=== PATIENT | male | born 1965 | race Caucasian/White ===

== ENCOUNTER 2017-07-25 09:10 | Day surgery (SDC) | payer OTHER ==
[~2017-07-25] VITALS: Ht 190.5 cm; Wt 131.6 kg
[~2017-07-25 09:10] MED LIST: ASPIRIN325 MG PO
[2017-07-25] MEDS ORDERED: METOPROLOL SUC100 MG PO (09:45)
[2017-07-25] MEDS ORDERED: BICALUTAMIDE50 MG PO (09:45)
--- NOTE | 2017-07-25 10:44 | NUR ---
07/25/17 1044 Lupe Keith 1025: PT ARRIVED TO PACU, DROWSY BUT RESPONDING TO RN. O2 AT 3L. PT RESTING ON L SIDE. ABD SOFT. NO NOTE OF FLATUS.
--- NOTE | 2017-07-25 11:57 | NUR ---
PT ZAHIDA, ORIENTED AND SUPPORTED BY HIS ROBERTO. BOTH PLEASANT PEOPLE, PT HAS HAD PREVIOUS SCOPES-DOESN'T LIKE PREP ANYMORE THIS TIME. BOTH SEEMED PREPARED, PT REQUESTED PRAYER. WILL FOLLOW NEEDED
--- NOTE | 2017-07-31 06:10 | OR ---
[facility] [address] [place], [place] [address] Signed DATE OF OPERATION: 07/25/2017 SURGEON: Amando Santiago MD PREOPERATIVE DIAGNOSES: 1. Change in bowel habits with alternating constipation, diarrhea, and right-sided abdominal pain. 2. His mother with history of colon cancer at age 61. POSTOPERATIVE DIAGNOSIS: Minimal internal hemorrhoids. PROCEDURE: Colonoscopy without biopsy. ESTIMATED BLOOD LOSS: None. INDICATIONS: Joey is a 52-year-old obese gentleman, who is scheduled for radical prostatectomy on 08/02/2017. He started some medication and developed some right-sided abdominal pain with a change in bowel habits including constipation and diarrhea. Apparently, that was not unexpected with his medication. He also told me that his mother developed colon cancer at age 61. He said he had his first colonoscopy at age 46 and it was fine. He was asked to have his followup colonoscopy prior to his prostate surgery. I met with Joey in the office and I gave him a booklet on colonoscopy. We looked at that together along with the risks including, but not limited to gas bloating, crampy abdominal pain, bleeding, perforation, requiring surgery, and missed diagnosis. We also discussed the need for IV conscious sedation. He told me he was awake during much of his prior colonoscopy and that was uncomfortable. PROCEDURE NOTE: Joey was taken into our endoscopy suite and placed in the left lateral decubitus position. We gave him 10 mg of Versed and 200 mcg of fentanyl to cover the case. It did take a little while for the medication to work for him. Digital rectal exam was performed and I could just feel the bottom of the prostate. He is a large man, I just could not quite reach. After this, the adult colonoscope was introduced and advanced all around into the cecum under direct visualization of the camera without difficulty. His prep was quite good. The scope was then slowly withdrawn. We saw no evidence of any pathology throughout the entire colon or rectum. Once in the rectum, the scope had Electronically Signed By: AMANDO SANTIAGO MD 07/31/17 0610 PATIENT NAME: JOEY IRAHETA OPERATIVE REPORT DATE OF : 67 REPORT #: [id number] PHYSICIAN: AMANDO SANTIAGO MD PCP: Austin SEAMAN MD REPORT IS CONFIDENTIAL AND NOT TO BE RELEASED WITHOUT AUTHORIZATION [address] [address] Signed been retroflexed and he does have some tiny internal hemorrhoid columns. After this, the gas was suctioned out and colonoscope removed. Joey tolerated the procedure quite well. RECOMMENDATIONS: I will see Joey back for repeat colonoscopy in 5 years. Amando Santiago MD ALB/MODL /[id number] cc: MD Austin Banegas MD Mershed Alsamara, MD Copies: FRANNIE LEWIS MD, W NORMAN MD ALSAMARA, MERSHED MD ~ Electronically Signed By: AMANDO SANTIAGO MD 07/31/17 0610 PATIENT NAME: JOEY IRAHETA OPERATIVE REPORT DATE OF : 67 REPORT #: [id number] PHYSICIAN: AMANDO SANTIAGO MD PCP: Austin SEAMAN MD REPORT IS CONFIDENTIAL AND NOT TO BE RELEASED WITHOUT AUTHORIZATION
== END 2017-07-25 11:00 | disposition home or self-care (01) ==
LOC: DS 09:10 → OPS 09:10 → DS 10:30 → OPS 10:30
PROVIDERS: Colon & Rectal Surgery
PROC: 0DJD8ZZ Inspection of Lower Intestinal Tract, Via Natural or Artificial Opening Endoscopic (ICD-10-PCS; principal; 2017-07-25 10:30)
DX: K64.8 Other hemorrhoids (principal); K21.9 Gastro-esophageal reflux disease without esophagitis; M48.061 Spinal stenosis, lumbar region without neurogenic claudication; Z98.890 Other specified postprocedural states; Z79.899 Other long term (current) drug therapy
CPT/HCPCS: G0500; J2250; J3010; J7120

== ENCOUNTER 2022-09-28 06:50 | Day surgery (SDC) | payer OTHER ==
[2022-09-19 15:12] VITALS: BP 133/87
[~2022-09-28] VITALS: Ht 190.5 cm; Wt 125.0 kg
[~2022-09-28 06:50] MED LIST changes: +BICALUTAMIDE50 MG PO; +HYDROCHLOROTH12.5 MG PO; +METOPROLOL SUC100 MG PO
[2022-09-28 07:03] VITALS: BP 133/89
--- NOTE | 2022-09-28 09:16 | NUR ---
09/28/22 0916 Chelle Kidd 0900 PT ARRIVED TO PACU WITH ORAL AIRWAY IN PLACE, RESP EVEN AND UNLABORED. 6L VIA MASK IN PLACE.
[2022-09-28 09:35] VITALS: BP 125/91
--- NOTE | 2022-09-28 10:30 | OR ---
[facility] [address] [place], [place] [address] Signed DATE OF OPERATION: 09/28/2022 SURGEON: Amando Santiago MD PREOPERATIVE DIAGNOSES: 1. Mother with rectal cancer age 61, requiring abdominoperineal resection. Then, colon cancer at age 82 requiring total abdominal colectomy. Also, history of colonic polyps. 2. Chronic intermittent rectal bleeding. 3. Internal hemorrhoids. POSTOPERATIVE DIAGNOSES: 1. 4 mm polyp at 7 cm in rectum. 2. 5 mm polyp at hepatic flexure. 3. 4 mm polyp at distal hepatic flexure. 4. 4 mm polyp at 30 cm. 5. Minimal to moderate internal hemorrhoids. PROCEDURE: Colonoscopy with hot biopsy. ESTIMATED BLOOD LOSS: None. INDICATIONS: Joey is a 57-year-old gentleman, asked to see me for a followup colonoscopy. His mother developed rectal cancer at age 61 and underwent an abdominoperineal resection at [facility] in [place], [place]. She has had multiple colonic polyps removed. She then developed colon cancer at age 82. She had the rest of her colon out and now has an ileostomy in the right lower quadrant. Joey himself is known to have internal hemorrhoids with chronic intermittent rectal bleeding. Joey had a colonoscopy with Dr. Michel, which was unremarkable back in 2005. He required 15 mg of Versed and 150 mcg of fentanyl at that time. I helped him with a colonoscopy in 2018 and we noted internal hemorrhoids. He required 10 mg of Versed and 200 mcg of fentanyl. Of course, we asked him to follow up in 5 years given his family history. In addition, he has undergone an open radical prostatectomy and had to deal with some where they reconnected the bladder to the urethra. He also reminded me that during his colonoscopies, he woke up multiple times and he said it was quite miserable. In the office, I had given him a pamphlet on colonoscopy. We had reviewed the nature of the test. There is risk including, but not limited to gas bloating, crampy abdominal pain, bleeding, perforation requiring surgery, and missed diagnosis. We also reviewed the Electronically Signed By: AMANDO SANTIAGO MD 09/28/22 1030 PATIENT NAME: JOEY IRAHETA OPERATIVE REPORT DATE OF : 67 REPORT #: [id number] PHYSICIAN: AMANDO SANTIAGO MD PCP: RENAE WATSON MD REPORT IS CONFIDENTIAL AND NOT TO BE RELEASED WITHOUT AUTHORIZATION [facility] [address] [place] [id number] Signed written instructions for a bowel prep line by line. He is a large man and he might benefit from some additional prep in the future. We also reviewed the need for monitored anesthesia care with propofol infusion as we described above. He had expressed understanding and wished to proceed. PROCEDURE NOTE: Joey was taken into our endoscopy suite and placed in the left lateral decubitus position. He was given IV propofol per our nurse generator technician. A digital rectal exam was performed. He has good sphincter tone. Really no external hemorrhoids. His prostate is absent. The adult colonoscope was then introduced and advanced all around into the cecum under direct visualization of the camera. We needed just a little bit of abdominal compression in order to get the scope directly in the cecum itself. He had two or three areas where he had liquid particulate stool matter, which most of it was irrigated and suctioned out. In the end, we could easily see the appendiceal orifice and the ileocecal valve. The scope was then slowly withdrawn. We took pictures throughout for photodocumentation. The above-mentioned polyps were removed with the help of hot biopsy forceps. We did not specifically see any diverticula on this occasion. Once in the rectum, the scope had been retroflexed and he does have minimal to moderate internal hemorrhoid columns. After this, the gas was suctioned out and the colonoscope removed. Joey tolerated the procedure quite well. RECOMMENDATIONS: Joey will follow up in my office in 7 to 14 days to review his results. I suspect he will stay on the five year plan. He may benefit from some additional bowel prep in the future. He really should continue with monitored anesthesia care in the future. Amando Santiago MD ALB/MODL /[id number] cc: MD Amando Monroy MD Electronically Signed By: AMANDO SANTIAGO MD 09/28/22 1030 PATIENT NAME: JOEY IRAHETA OPERATIVE REPORT DATE OF : 67 REPORT #: [id number] PHYSICIAN: AMANDO SANTIAGO MD PCP: RENAE WATSON MD REPORT IS CONFIDENTIAL AND NOT TO BE RELEASED WITHOUT AUTHORIZATION [place] [id number] Signed Copies: AMANDO SANTIAGO MD ~ Electronically Signed By: AMANDO SANTIAGO MD 09/28/22 1030 PATIENT NAME: JOEY IRAHETA OPERATIVE REPORT DATE OF : 67 REPORT #: [id number] PHYSICIAN: AMANDO SANTIAGO MD PCP: RENAE WATSON MD REPORT IS CONFIDENTIAL AND NOT TO BE RELEASED WITHOUT AUTHORIZATION
--- NOTE | 2022-09-28 11:45 | NUR ---
PT ALERT, ORIENTED AND MENTIONED HE HAS HAD SEVRAL PREVIOUS SCOPES. PTS' ROBERTO WILL ARRIVE FOR DC. ALL QUESTIONS ASKED ANSWERED. PT REQUESTED PRAYER, GAVE BLESSING AND WILL FOLLOW
--- NOTE | 2022-10-01 16:10 | PATH ---
[facility] [address] [place], [place] [address] Signed SPECIMEN(S): A RECTAL POLYP AT 7 CM SPECIMEN(S): B HEPATIC FLEXURE COLON POLYP SPECIMEN(S): C DISTAL HEPATIC FLEXURE COLON POLYP SPECIMEN(S): D COLON POLYP AT 30 CM SPECIMEN SOURCE: A. RECTAL POLYP AT 7 CM B. HEPATIC FLEXURE COLON POLYP C. DISTAL HEPATIC FLEXURE COLON POLYP D. COLON POLYP AT 30 CM CLINICAL HISTORY: Pre: Family history of colon polyps and colon CA. FINAL PATHOLOGIC DIAGNOSIS: A. Rectal polyp at 7 cm: - Hyperplastic polyp (one fragment). B. Hepatic flexure colon polyp: - Hyperplastic polyp (one fragment). C. Distal hepatic flexure colon polyp: - Hyperplastic polyp (one fragment). D. Colon polyp at 30 cm: - Tubular adenoma (one fragment). JVR:[facility]:C2NR MICROSCOPIC EXAMINATION: Histologic sections of all submitted blocks are examined by light microscopy. These findings, together with the gross examination, support the pathologic diagnosis. GROSS DESCRIPTION: A. The specimen, labeled and designated "Iraheta, rectum polyp at 7 cm," is received in formalin and consists of one barajas soft tissue fragment, 0.3 cm. Entirely submitted in (A1). B. The specimen, labeled and designated "Iraheta, hepatic flexure polyp," is received in formalin and consists of one barajas soft tissue fragment, 0.1 cm. Entirely submitted in (B1). C. The specimen, labeled and designated "Iraheta, distal hepatic flexure polyp," is received in formalin and consists of one barajas soft tissue fragment, 0.1 cm. Entirely submitted in (C1). D. The specimen, labeled and designated "Iraheta, colon polyp at 30 cm," is PATIENT NAME: JOEY IRAHETA PATHOLOGY DATE OF : 67 REPORT #: [id number] PHYSICIAN: JOANNE PATHOLOGY PCP: RENAE WATSON MD REPORT IS CONFIDENTIAL AND NOT TO BE RELEASED WITHOUT AUTHORIZATION [facility] [address] [place], [place] [address] Signed received in formalin and consists of one barajas soft tissue fragment, 0.1 cm. Entirely submitted in (D1). JS (under the direct supervision of a pathologist) The Gross Description was prepared using a voice recognition system. The report was reviewed for accuracy; however, sound-alike word errors, addition and/or deletions may occur. If there is any question about this report, please contact Client Services. PERFORMING LABORATORY: The technical component was performed by [facility], [address] [place] [id number] (CLIA# [id number]). Professional interpretation was performed by [facility], [address] [place] [id number] (CLIA#: [id number]). Diagnostician: Rober Uribe MD Pathologist Electronically Signed 10/01/2022 Copies: ~ PATIENT NAME: JOEY IRAHETA PATHOLOGY DATE OF : 67 REPORT #: [id number] PHYSICIAN: JOANNE CASTRO PCP: RENAE WATSON MD REPORT IS CONFIDENTIAL AND NOT TO BE RELEASED WITHOUT AUTHORIZATION
== END 2022-09-28 09:47 | disposition home or self-care (01) ==
LOC: OPS 06:50 → DS 06:50 → OPS 08:15 → DS 08:15 → OPS 09:47
PROVIDERS: ATTEND Colon & Rectal Surgery
PROC: 0DBE8ZX Excision of Large Intestine, Via Natural or Artificial Opening Endoscopic, Diagnostic (ICD-10-PCS; 2022-09-28)
PROC: 0DBL8ZX Excision of Transverse Colon, Via Natural or Artificial Opening Endoscopic, Diagnostic (ICD-10-PCS; 2022-09-28)
PROC: 0DBP8ZX Excision of Rectum, Via Natural or Artificial Opening Endoscopic, Diagnostic (ICD-10-PCS; principal; 2022-09-28 08:15)
DX: K62.5 Hemorrhage of anus and rectum (principal); K62.1 Rectal polyp; K63.5 Polyp of colon; R10.30 Lower abdominal pain, unspecified; I10 Essential (primary) hypertension; K64.8 Other hemorrhoids; K44.0 Diaphragmatic hernia with obstruction, without gangrene; Z80.0 Family history of malignant neoplasm of digestive organs; Z85.46 Personal history of malignant neoplasm of prostate
CPT/HCPCS: J2704; J7121